=== PATIENT | female | born 2005 | race Two or more races ===

== ENCOUNTER 2023-03-26 09:50 | Emergency (ER) | payer MEDICAID ==
[~2023-03-26] VITALS: Ht 167.6 cm; Wt 51.5 kg
[2023-03-26 10:54] VITALS: BP 129/81; PULSE 88; RESP 16; TEMP 97.2; O2SAT 95
== END 2023-03-26 12:55 | disposition left against medical advice (07) ==
LOC: ER 09:50
DX: R51.9 Headache, unspecified (principal); Z53.21 Procedure and treatment not carried out due to patient leaving prior to being seen by health care provider
CPT/HCPCS: 81025